=== PATIENT | male | born 1955 ===

== ENCOUNTER 2016-06-07 12:56 | Outpatient (CLI) | payer OTHER | END 2016-06-07 12:57 | disposition home or self-care (01) | LOC: NC 12:56 | PROVIDERS: ATTEND Family Medicine | DX: E11.9 Type 2 diabetes mellitus without complications (principal); Z71.3 Dietary counseling and surveillance; Z68.34 Body mass index [BMI] 34.0-34.9, adult; M10.9 Gout, unspecified; I50.9 Heart failure, unspecified; I10 Essential (primary) hypertension ==